=== PATIENT | female | born 1970 | race Caucasian/White ===

== ENCOUNTER 2021-11-21 20:58 | Emergency (ER) | payer OTHER ==
[2021-11-21] MEDS ORDERED: Ibuprofen 800 MG TAB ONE (22:45)
== END 2021-11-21 22:47 | disposition home or self-care (01) ==
LOC: MADERS 20:58
DX: S52.571A Other intraarticular fracture of lower end of right radius, initial encounter for closed fracture (principal); S52.611A Displaced fracture of right ulna styloid process, initial encounter for closed fracture; S52.121A Displaced fracture of head of right radius, initial encounter for closed fracture; S00.81XA Abrasion of other part of head, initial encounter; F17.290 Nicotine dependence, other tobacco product, uncomplicated; V43.52XA Car driver injured in collision with other type car in traffic accident, initial encounter; W22.11XA Striking against or struck by driver side automobile airbag, initial encounter; Z79.899 Other long term (current) drug therapy
CPT/HCPCS: 70450; G0390

== ENCOUNTER 2022-07-09 20:45 | Emergency (ER) | payer OTHER ==
[2022-07-09] MEDS ORDERED: AMOXicillin 250 MG CAP ONE (23:00)
== END 2022-07-09 23:24 | disposition home or self-care (01) ==
LOC: MADERS 20:45
DX: H66.41 Suppurative otitis media, unspecified, right ear (principal); R42 Dizziness and giddiness; R29.701 NIHSS score 1; F17.290 Nicotine dependence, other tobacco product, uncomplicated; Z79.899 Other long term (current) drug therapy
CPT/HCPCS: 99282